=== PATIENT | female | born 1960 | race Caucasian/White ===

== ENCOUNTER 2018-06-02 15:30 | Emergency (ER) | payer OTHER ==
[2018-06-02] MEDS: LORAZEPAM 1 MG TAB PO (17:57)
== END 2018-06-02 18:14 | disposition home or self-care (01) ==
LOC: E/R 15:30
DX: F41.9 Anxiety disorder, unspecified (principal); F51.01 Primary insomnia
CPT/HCPCS: 99283; Z7502